=== PATIENT | female | born 1985 | race African-American/Black ===

== ENCOUNTER 2016-12-13 17:30 | Emergency (ER) | payer OTHER ==
[~2016-12-13] VITALS: Ht 154.9 cm; Wt 84.8 kg
[~2016-12-13 17:30] MED LIST: BENADRYL25 MG PO; CLARITIN10 MG PO; NAPROSYN500 MG PO; NORFLEX100 MG PO; PREDNISONE 20 M20 MG PO; TESSALON PERLE100 MG PO
[2016-12-13] MEDS ORDERED: IBUPROFEN 600600 M1 PO (17:54)
[2016-12-13] MEDS ORDERED: KEFLEX500 MG PO (17:54)
[2016-12-13 18:18] VITALS: BP 118/74
== END 2016-12-13 17:55 | disposition home or self-care (01) ==
LOC: ER 17:30
DX: K08.89 Other specified disorders of teeth and supporting structures (principal)

== ENCOUNTER 2017-06-07 22:55 | Emergency (ER) | payer OTHER ==
[~2017-06-07] VITALS: Ht 154.9 cm; Wt 81.7 kg
--- NOTE | ~2017-06-07 | EKG ---
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
[~2017-06-07 22:55] MED LIST changes: +IBUPROFEN 600600 M1 PO; +KEFLEX500 MG PO; +MOBIC7.5 MG PO; +NOHOMEMEDICATIONS; +OXYCODONE HCL 55 MG PO; +PENICILLIN V P500 MG PO
[2017-06-07] MEDS ORDERED: MIRENA1 EACH INTRAUTERI (23:02)
[2017-06-07 23:29] LABS: HEMATOCRIT 38.1 % (37.0-47.0); HEMOGLOBIN 13.1 gm/dL (12.0-15.0); MCH 30.5 pg (26.0-34.0); MCHC 34.4 g/dL (28.0-37.0); MCV 88.7 fL (80.0-100.0); RBC 4.3 mil/uL (4.20-5.00); RDW 13.3 % (10.5-14.5); WBC 5.9 thou/uL (4.0-11.0)
[2017-06-07 23:37] LABS: ANION GAP 10 mmol/L (7-16); BUN 13 mg/dL (7-18); CALCIUM 9.2 mg/dL (8.5-10.1); CHLORIDE 104 mmol/L (98-107); CO2 26 mmol/L (21-32); GLUCOSE 93 mg/dL (74-106); POTASSIUM 3.7 mmol/L (3.5-5.1); SODIUM 140 mmol/L (136-145)
[2017-06-07 23:46] LABS: ALBUMIN 4.2 g/dL (3.4-5.0); SGOT 15 U/L (15-37); SGPT 17 U/L (30-65); TOTAL BILIRUBIN 0.2 mg/dL (<0.1-1.0); TOTAL PROTEIN 8.3 g/dL (6.4-8.2); TROPONIN-I < 0.04 ng/mL (<0.06)
[2017-06-07] MEDS ORDERED: ALEVE220 M1 PO (23:59)
[2017-06-07] MEDS ORDERED: TESSALON PERLE100 MG PO (23:59)
== END 2017-06-08 00:47 | disposition home or self-care (01) ==
LOC: ER 22:55
PROVIDERS: Emergency Medicine
DX: J06.9 Acute upper respiratory infection, unspecified (principal); R07.9 Chest pain, unspecified

== ENCOUNTER 2017-08-03 09:23 | Emergency (ER) | payer OTHER ==
[~2017-08-03] VITALS: Ht 157.5 cm; Wt 81.2 kg
[~2017-08-03 09:23] MED LIST changes: +ALEVE220 M1 PO; +MIRENA1 EACH INTRAUTERI
[2017-08-03 09:45] LABS: URINE BILIRUBIN NEGATIVE (Negative); URINE BLOOD NEGATIVE (Negative); URINE CLARITY CLEAR; URINE COLOR YELLOW; URINE GLUCOSE-RANDOM* NEGATIVE (Negative); URINE KETONES NEGATIVE (Negative); URINE LEUKOCYTES NEGATIVE (Negative); URINE NITRITE NEGATIVE (Negative); URINE PROTEIN (DIPSTICK) NEGATIVE (Negative); URINE SPECIFIC GRAVITY >= 1.030 (1.005-1.035); URINE UROBILINOGEN 0.2 E.U./dl (0.2-1.0)
[2017-08-03] MEDS ORDERED: TIZANIDINE HCL4 MG PO (10:26)
[2017-08-03] MEDS ORDERED: MOBIC15 MG PO (10:26)
== END 2017-08-03 10:36 | disposition home or self-care (01) ==
LOC: ER 09:23
PROVIDERS: Nurse Practitioner
DX: M79.1 Myalgia (principal); M54.6 Pain in thoracic spine; M25.562 Pain in left knee

== ENCOUNTER 2017-11-01 06:02 | Emergency (ER) | payer OTHER ==
[~2017-11-01] VITALS: Ht 154.9 cm; Wt 83.9 kg
[~2017-11-01 06:02] MED LIST changes: +MOBIC15 MG PO; +TIZANIDINE HCL4 MG PO
[2017-11-01] MEDS ORDERED: IBUPROFEN 200200 M1 PO (06:15)
[2017-11-01 06:33] LABS: URINE BILIRUBIN NEGATIVE (Negative); URINE BLOOD NEGATIVE (Negative); URINE CLARITY CLEAR; URINE COLOR YELLOW; URINE GLUCOSE-RANDOM* NEGATIVE (Negative); URINE KETONES NEGATIVE (Negative); URINE NITRITE-REFLEX NEGATIVE (Negative); URINE PROTEIN (DIPSTICK) NEGATIVE (Negative); URINE SPECIFIC GRAVITY >= 1.030 (1.005-1.035); URINE UROBILINOGEN 0.2 E.U./dl (0.2-1.0)
[2017-11-01 06:36] LABS: URINE LEUKOCYTES-REFLEX 1+ (Negative)
[2017-11-01 06:45] LABS: CASTS None Seen /LPF (None Seen); CRYSTALS None Seen /LPF (None Seen); SQUAMOUS >10 Many /LPF (0-3); URINE WBC-REFLEX 0-5 Rare /HPF (0-5)
[2017-11-01 06:46] LABS: BACTERIA-REFLEX 1-9 Few /HPF (None Seen); URINE RBC 0-2 Rare /HPF (0-2)
[2017-11-01] MEDS ORDERED: BACTRIM DS TAB1 EACH PO (07:19)
== END 2017-11-01 07:25 | disposition home or self-care (01) ==
LOC: ER 06:02
PROVIDERS: Emergency Medicine
DX: R35.0 Frequency of micturition (principal); R39.15 Urgency of urination; R82.99 Other abnormal findings in urine